=== PATIENT | female | born 1985 | race Caucasian/White ===

== ENCOUNTER → 2024-06-02 15:18 | Outpatient (CLI) | payer OTHER, SELFPAY ==
--- NOTE | ~2024-06-02 | XR_ITS ---
XR abdomen/kub 1V Ordering provider: Chey Bustamante History: . 10596. HX OF KIDNEY STONES. . Comparison: None. FINDINGS: BOWEL: Nonobstructive bowel gas pattern. Fecal material is loaded in the colon suggestive of constipa tion. ORGANOMEGALY: None. SIGNIFICANT PATHOLOGIC CALCIFICATIONS: None. OTHER: No free air is seen under the diaphragm. IMPRESSION: NO ACUTE ABDOMINAL FINDINGS. Constipation. Reviewed, dictated and finalized at location A.
--- OUTSIDE RECORDS SUMMARY | 2024-06-02 16:41 | XMS_ITS | Clinical Summary ---
Author Organization [facility] [address] [place] [address] Phone Care Team Providers Care Composite Layup Worker Name Role Phone Unavailable Primary Care Provider Unavailabl e Allergies Active Allergy Reactions Criticality Noted Date Comments Codeine Nausea and Vomiting Low 05/18/2012 Medications VITS W-CA,FE,FA,<1MG, ( VITAMIN ORAL) Take 1 Tab by mouth daily. Active Levothyroxine 100 mcg Oral Cap Take 1 Tab by mouth daily. Active Family History Medical History Relation Name Comments Cancer Father Colon Cancer Father Hypertension Maternal Grandfather Hypertension Maternal Grandmother Healthy Mother Hypertension Paternal Grandfather Hypertension Paternal Grandmother Healthy Son Relation Name Status Comments Father Maternal Grandfather Maternal Grandmother Mother Paternal Grandfather Paternal Grandmother Son Social History Tobacco Use Types Packs/Day Years Used Date Smoking Tobacco: Never Alcohol Use Standard Drinks/Week Comments No 0 (1 standard drink = 0.6 oz pur e alcohol) Comments Yes Sex and Gender Information Value Date Recorded Sex Assigned at Not on file Legal Sex Female 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 REPAIRER Gender Identity Not on file Sexual Orientation Not on file Occupation Industry Job Start Date Job End Date Not on file Not on file Not on file Not on file Plan of Treatment Health Maintenance Due Date Last Done Comments DTAP/TDAP/TD VACCINES (1 - Tdap) 2002 HEPATITIS B VACCINES (1 of 3 - 19+ 3-dose series) 2002 HPV/Cotest (21-29) 2004 CERVICAL CANCER SCREENING 2013 HPV/Cotest (30-65) 2013 PAP SMEAR 2013 BREAST CANCER SCREENING 2023 INFLUENZA VACCINE (#1) 2023 RSV VACCINE (60+ or ) (1 - 1-dose 75+ series) 2058 HPV VACCINES Aged Out No longer eligi ble based on patient's age to complete this topic
--- OUTSIDE RECORDS SUMMARY | 2024-06-02 16:41 | XMS_ITS | Clinical Summary ---
Author Organization [facility] Address [address] [place] [address] Phone Care Team Providers Care Ornamental Metal Erector Apprentice Name Role Phone Jose Elias Pastor MD Primary Care Provider [phone] Jose Elias Pastor MD Unavailable [phone] Allergies Active Allergy Reactions Criticality Noted Date Comments Codeine Nausea Low 05/12/2017 Codeine Diarrhea 12/28/2019 Medications levothyroxine (SYNTHROID) 100 MCG Tablet Take 112 mcg by mouth daily. 0 Active fluticasone (FLONASE) 50 MCG/ACT SuspensionIndicati ons:RSV (acute bronchiolitis due to respiratory syncytial virus) 1-2 Sprays by Nasal route daily. Use in each nostril as directed. 15.8 mL 2 Active Active Problems No known active problems Social History Tobacco Use Types Packs/Day Years Used Date Smoking Tobacco: Never Smokeless Tobacco: Never Comments No Sex and Gender Information Value Date Recorded Sex Assigned at Not on file Legal Sex Female 8:25 AM TOP LIFT COMPRESSOR Gender Identity Not on file Sexual Orientation Not on file Last Filed Vital Signs Vital Sign Reading Time Taken Comments Blood Pressure 106/60 12/17/2021 11:34 AM TOP LIFT COMPRESSOR Pulse 65 12/17/2021 11:34 AM TOP LIFT COMPRESSOR Temperature 36.4 C (97.6 F) 12/17/2021 11:34 AM TOP LIFT COMPRESSOR Respiratory Rate 20 12/17/2021 11:34 AM TOP LIFT COMPRESSOR Oxygen Saturation 98% 12/17/2021 11:34 AM TOP LIFT COMPRESSOR Inhaled Oxygen Concentration - - Weight 93 kg (205 lb) 02/01/2021 9:48 AM TOP LIFT COMPRESSOR Height 170.2 cm (5' 7 ) 12/28/2019 8:57 AM TOP LIFT COMPRESSOR Body Mass Index 32.11 12/28/2019 8:57 AM TOP LIFT COMPRESSOR Plan of Treatment Health Maintenance Due Date Last Done Comments Hepatitis C Virus (HCV) Screening 1983 TdaP Immunization 1983 Hepatitis B Immunization (1 of 3 - 19+ 3-dose series) 2002 Influenza Immunization (#1) 2023 SARS-COV-2 Immunization (1 - 2023- season) 2023 Respiratory Syncytial Virus (RSV) Immunization (Adult) (1 - 1-dose 75+ series) 2058 Meningococcal Immunization (ACWY) Aged Out No longer eligible based on patient's age to complete this topic Pneumococcal Immunization Combined Aged Out No longer eligible based on patient's age to complete this topic Rotavirus Immunization Aged Out No lo nger eligible based on patient's age to complete this topic Insurance Care Teams Ornamental Metal Erector Apprentice Relationship Specialty Start Date End Date Jose Elias Pastor MD [address] [place] [address] [address] [place] [address] PCP - General Family Medicine 11/18/20 Jose Elias Pastor MD [address] [place] [address] Family Medicine 12/28/19
--- OUTSIDE RECORDS SUMMARY | 2024-06-02 16:41 | XMS_ITS | Encounter Summary ---
Author Organization [facility] Address [address] [place] [address] Care Team Providers Care Cellar Packer Name Role Phone Cydney Ayala NP Primary Care Provider [phone] Encounter Details Date Type Department Care Team (Late st Contact Info) Description 01/15/2023 NXVISION Message Enc [facility] Family Medicine [facility] [address] [place] [address] [facility] Provider Pulmicort Social History Tobacco Use Types Packs/Day Years Used Date Smoking Tobacco: Never Passive Smoke Exposure: Past Smokeless Tobacco: Never Alcohol Use Standard Drinks/Week Comments Yes 0 (1 standard drink = 0.6 oz pur e alcohol) socially PHQ-2 Answer Date Recorded Patient Health Questionnaire-2 Score 0 09/08/2022 Comments No Sex and Gender Information Value Date Recorded Sex Assigned at Not on file Legal Sex Female 4:19 PM CDT Gender Identity Not on file Sexual Orientation Not on file documented as of this encounter Plan of Treatment Not on file documented as of this encounter Visit Diagnoses Not on filedocumented in this encounter Additional Health Concerns Assessment Noted Time PHQ-9 Depression Total Score: 15 023 10:20 AM CDT documented as of this encounter Care Teams Cellar Packer Relationship Specialty Start Date End Date Cydney Ayala NP [address] [place] [address] PCP - General NURSE PRACTITIONER 06/04/22 documented as of this encounter
--- OUTSIDE RECORDS SUMMARY | 2024-06-02 16:41 | XMS_ITS | Referral Summary ---
Author Organization [facility] Address [address] [place] [address] Phone Care Team Providers Care Photoengraving Printer Name Role Phone Cydney Ayala MD Primary Care Provider [phone] Encounters Date Type Department Care Team Description 03/22/2024 3:45 PM CLOTH WASHER BACK TENDER Office Visit [facility] Orthopaedic Surgery [address] [place] [address] Jumana Herrera, STEFFI Plantar fasciitis (Primary Dx); Left foot pain from Last 3 Months Allergies Active Allergy Reactions Criticality Noted Date Comments Bupropion Other (See comments) Low 07/09/2022 Intolerance to Wellbutrin, caused her to be very angry Codeine Diarrhea,Nausea only,Unknown Low 05/12/2017 Medications levothyroxine (SYNTHROID) 112 mcg tablet Take 1 tablet (112 mcg total) by mouth daily 4 Active phentermine 15 mg capsule TAKE 1 CAPSULE BY MOUTH DAILY 1 TO 2 HOURS AFTER BREAKFAST Active cyanocobalamin (Vitamin B-12) 1,000 mcg tablet Take 1 tablet (1,000 mcg total) by mouth daily Active cholecalciferol (VITAMIN D-3) 1,000 unit capsule Take by mouth Active meloxicam (MOBIC) 15 mg tablet Take 1 tablet (15 mg total) by mouth daily 14 tablet 12/08/19 Active Additional Information Patient not taking.Reported on 12/29/2023 Active Problems No known active problems Social History Tobacco Use Types Packs/Day Years Used Date Smoking Tobacco: Never Smokeless Tobacco: Never Tobacco Cessation:Counseling Given: Not Answered Comments Unknown Sex and Gender Information Value Date Recorded Sex Assigned at Not on file Legal Sex Female 7:00 PM CLOTH WASHER BACK TENDER Gender Identity Not on file Sexual Orientation Not on file Last Filed Vital Signs Vital Sign Reading Time Taken Comments Blood Pressure - - Pulse - - Temperature - - Respiratory Rate - - Oxygen Saturation - - Inhaled Oxygen Concentration - - Weight 95.3 kg (210 lb) 12/29/2023 8:05 AM CLOTH WASHER BACK TENDER Height 172.7 cm (5' 8 ) 12/29/2023 8:05 AM CLOTH WASHER BACK TENDER Body Mass Index 31.93 12/29/2023 8:05 AM CLOTH WASHER BACK TENDER Plan of Treatment Not on file Insurance [id number] CHOICE PLUS [facility] HMO/PPO Address: [facility] [address] [place] [id number] [facility] CHOICE PLUS [facility] HMO/PPO Address: [place] [address] Care Teams Photoengraving Printer Relationship Specialty Start Date End Date Cydney Ayala MD PCP - General Nurse Practitioner 12/08/23
--- OUTSIDE RECORDS SUMMARY | 2024-06-02 16:41 | XMS_ITS | Encounter Summary ---
Author Organization [facility] Address [address] [place] [address] Care Team Providers Care Craft Worker Name Role Phone Cydney Ayala NP Primary Care Provider [phone] Encounter Details Date Type Department Care Team (Late st Contact Info) Description 04/28/2023 Nuservt Message Enc [facility] Family Medicine - [place] [address] [place], [place] [id number] Cydney Ayala NP [address] [place], [place] [id number] Cough/congestion Social History Tobacco Use Types Packs/Day Years Used Date Smoking Tobacco: Never Passive Smoke Exposure: Past Smokeless Tobacco: Never Alcohol Use Standard Drinks/Week Comments Yes 0 (1 standard drink = 0.6 oz pur e alcohol) socially PHQ-2 Answer Date Recorded Patient Health Questionnaire-2 Score 0 02/16/2023 Comments No Sex and Gender Information Value [...] documented as of this encounter Care Teams Craft Worker Relationship Specialty Start Date End Date Cydney Ayala NP [address] [place], [place] [id number] PCP - General NURSE PRACTITIONER 06/04/22 documented as of this encounter
--- OUTSIDE RECORDS SUMMARY | 2024-06-02 16:41 | XMS_ITS | Clinical Summary ---
Author Organization [facility] Address [address] [place] [address] Phone Care Team Providers Care Abrasive Coating Machine Operator Name Role Phone Cydney Ayala MD Primary Care Provider [phone] Allergies Active Allergy Reactions Criticality Noted Date [...] mg total) by mouth daily 14 tablet 4 12/08/19 25 Active Additional Information Patient not taking.Reported on 12/29/2023 Active Problems No known active problems Encounters Date Type Department Care Team Description 03/22/2024 3:45 PM OXYGEN SYSTEM TESTER Office Visit [facility] Orthopaedic Surgery [address] [place] [address] Jumana Herrera, STEFFI Plantar fasciitis (Primary Dx); Left foot pain from Last 3 Months Social History Tobacco Use Types Packs/Day Years Used Date Smoking Tobacco: Never Smokeless Tobacco: Never Tobacco Cessation:Counseling Given: Not Answered Comments Unknown Sex and Gender Information Value Date Recorded Sex Assigned at Not on file Legal Sex Female 7:00 PM OXYGEN SYSTEM TESTER Gender Identity Not on file Sexual Orientation Not on file Obstetrics History Last Filed Vital Signs Vital Sign Reading Time Taken Comments Blood Pressure - - Pulse - - Temperature - - Respiratory Rate - - Oxygen Saturation - - Inhaled Oxygen Concentration - - Weight 95.3 kg (210 lb) 12/29/2023 8:05 AM OXYGEN SYSTEM TESTER Height 172.7 cm (5' 8 ) 12/29/2023 8:05 AM OXYGEN SYSTEM TESTER Body Mass Index 31.93 12/29/2023 8:05 AM OXYGEN SYSTEM TESTER Plan of Treatment Health Maintenance Due Date Last Done Comments Cervical Cancer Screening 1983 Depression Screening 1983 Hepatitis C Screening 1983 Varicella Vaccines (1 of 2 - 13+ 2-dose series) 1996 Hepatitis B Screening 2001 Regular Well Visit/Exam 18-64 2001 Breast Cancer Screening-Mammogram 08/30/2024 08/31/2023, 08/31/2023 Influenza Vaccine (Season Ended) 2024 DTaP/Tdap/Td Vaccine (2 - Td or Tdap) 02/05/2032 02/04/2022 HPV Vaccines Aged Out No longer eligi ble based on patient's age to complete this topic Pneumococcal vaccine <65 Aged Out No longer eligible based on patient's age to complete this topic Insurance [facility] PL[facility] Care Teams Abrasive Coating Machine Operator Relationship Specialty Start Date End Date Cydney Ayala MD PCP - General Nurse Practitioner 12/08/23
--- OUTSIDE RECORDS SUMMARY | 2024-06-02 16:41 | XMS_ITS | Clinical Summary ---
Author Organization [facility] Address [address] [place] [address] Care Team Providers Care Wood Boatbuilder Name Role Phone Cydney Parker NP Primary Care Provider +[phone] Allergies Active Allergy Reactions Criticality Noted Date Comments Codeine Diarrhea,Nausea Only,Unknown Low 05/12/2017 Bupropion Other (see comment) 07/09/2022 Intolerance to Wellbutrin, caused her to be very angry Medications vitamin B-12 (CYANOCOBALAMIN) (CYANOCOBALAMIN) 1000 mcg tablet Take 1 tablet (1,000 mcg total) by mouth daily. Active albuterol sulfate HFA 108 (90 Base) MCG/ACT inhalerIndicatio ns:Cough, unspecified type Inhale 2 puffs into the lungs every 6 (six) hours as needed for Wheezing. 18 g 3 Active Cholecalciferol (VITAMIN D3) 1000 units Cap Activ e Phentermine HCl 15 MG CapIndications:O besity (BMI 30-39.9) Take 1 tablet by mouth daily. Take 1-2 hours after breakfast 30 capsule 4 Active propranolol (INDERAL) 10 MG tabletIndication s:Anxiety Take 1 tablet (10 mg total) by mouth 2 (two) times daily as needed (for anxiety). 30 tablet 5 Active levothyroxine (SYNTHROID) 112 MCG tabletIndication s:Hypothyroidism , unspecified type Take 1 tablet (112 mcg total) by mouth every morning. 90 tablet 5 Active Active Problems Problem Noted Date Diagnosed Date Screening for colon cancer 09/08/2022 Overview (09/08/2022): Added automatically from request for surgery [id number] Family hx of colon cancer 09/08/2022 Overview (09/08/2022): Added automatically from request for surgery [id number] Anxiety and depression 06/09/2022 Obesity (BMI 30-39.9) 06/09/2022 Other fatigue 06/09/2022 Encounters Date Type Department Care Team Description 03/13/2024 Materialiset Message Enc [facility] Medical Group Family Medicine - [place] [address] [place] [address] Cydney Parker NP Glucose from Last 3 Months Immunizations Immunization Administration Dates Next Due Tdap (Generic) 02/04/2022 Family History Medical History Relation Comments Colon Cancer Father stage 4 Arthritis Mother Autoimmune COPD Mother Rheumatoid Arthritis Mother Relation Status Comments Father Mother Social History Tobacco Use Types Packs/Day Years Used Date Smoking Tobacco: Never Passive Smoke Exposure: Past Smokeless Tobacco: Never Tobacco Cessation:Counseling Given: No Alcohol Use Standard Drinks/Week Comments Yes 0 [...] Sign Reading Time Taken Comments Blood Pressure 118/76 07/08/2023 11:29 AM CDT Pulse 73 07/08/2023 11:29 AM CDT Temperature 36.9 C (98.5 F) 07/08/2023 11:29 AM CDT Respiratory Rate 16 07/08/2023 11:29 AM CDT Oxygen Saturation 100% 07/08/2023 11:29 AM CDT Inhaled Oxygen Concentration - - Weight 98 kg (216 lb) 07/08/2023 11:29 AM CDT Height 172.7 cm (5' 8 ) 02/16/2023 3:50 PM VICE PRESIDENT NETWORK DEVELOPMENT Body Mass Index 32.84 02/16/2023 3:50 PM VICE PRESIDENT NETWORK DEVELOPMENT Plan of Treatment Health Maintenance Due Date Last Done Comments Cervical Cancer Screening Pa p Smear (Age 30 to 64) Every 3 Years 1983 Hepatitis B Vaccines (1 of 3 - 19+ 3-dose series) 2002 Cervical Cancer Screening Pa p with HPV Testing (Age 30 to 64) Every 5 Years 2013 Cervical Cancer Screening with HPV 2013 COVID-19 Vaccine (2023-2 5 season) 2023 PHQ-2 (Physician [place]) 02/10/2024 02/16/2023 Annual Physical 02/17/2024 02/16/2023 Mammogram Screening 08/30/2025 08/31/2023 DTaP, Tdap and Td Vaccines ( 2 - Td or Tdap) 02/05/2032 02/04/2022 Hepatitis C Completed 06/16/2022 HPV Vaccines Aged Out No longer eligi ble based on patient's age to complete this topic Meningococcal B Vaccine Aged Out No l onger eligible based on patient's age to complete this topic Meningococcal Vaccine Aged Out No neisha juan carlos eligible based on patient's age to complete this topic Pneumococcal Vaccine: Pediat rics (0 to 5 Years) and At-Risk Patients (6 to 49 Years) Aged Out No longer eligi ble based on patient's age to complete this topic RSV Immunizations Under 20 Months Aged Out No longer eligible based on patient's age to complete this topic Procedures Procedure Name Priority Date/Time Associated Diagnosis Comments VITAMIN D, 25 OH TOTAL Routine 03/11/2024 7:22 AM VICE PRESIDENT NETWORK DEVELOPMENT Vitamin D deficiency TSH W/REFLEX Routine 03/11/2024 7:22 AM VICE PRESIDENT NETWORK DEVELOPMENT Screening for thyroid disorder LIPID PANEL Routine 03/11/2024 7:22 AM VICE PRESIDENT NETWORK DEVELOPMENT Screening for hyperlipidemia HEMOGLOBIN, GLYCOSYLATED Routine 03/11/2024 7:22 AM VICE PRESIDENT NETWORK DEVELOPMENT Screening for endocrine, metabolic and immunity disorder Obesity (BMI 30-39.9) COMPREHENSIVE METABOLIC PANEL Routine 03/11/2024 7:22 AM VICE PRESIDENT NETWORK DEVELOPMENT Screening for endocrine, metabolic and immunity disorder Obesity (BMI 30-39.9) CBC W/DIFF AUTOMATED Routine 03/11/2024 7:22 AM VICE PRESIDENT NETWORK DEVELOPMENT Screening for endocrine, metabolic and immunity disorder MG SCREENING W LESLY MONAE DIGI Routine 08/31/2023 2:14 PM CDT Screening mammogram for breast cancer HEPATITIS C ANTIBODY W/RFX TO HCV RNA Routine 06/16/2022 11:23 AM CDT Need for hepatitis C screening test from Last 3 Months or Most Recently Relevant to Health Maintenance Results * TSH W/REFLEX (03/11/2024 7:22 AM VICE PRESIDENT NETWORK DEVELOPMENT) TSH 3.23 mIU/L [facility] Comment: Reference Range > or = 20 Years 0.40-4.50 Ranges First trimester 0.26-2.66 Second trimester 0.55-2.73 Third trimester 0.43-2.91 03/11/2024 7:22 AM VICE PRESIDENT NETWORK DEVELOPMENT 03/11/2024 7:22 AM VICE PRESIDENT NETWORK DEVELOPMENT Narrative [facility] - JIM ORDERS - 03/12/2024 3:32 AM VICE PRESIDENT NETWORK DEVELOPMENT FASTING:YES FASTING: YES Resulting Agency Comment Performing Organization Information: Site ID: [place] Name: [facility] Address: [address] [place] [id number] Director: Andres Armas MD us Cydney Parker NP LABORATORY Final Res ult [facility] [address] [address] * VITAMIN D, 25 OH ([facility] ONLY) (03/11/2024 7:22 AM VICE PRESIDENT NETWORK DEVELOPMENT) VITAMIN D 25 HYDROXY TOTAL S/P/B 52 30 - 100 ng/mL [facility] Comment: Vitamin D Status 25-OH Vitamin D: Deficiency: <20 ng/mL Insufficiency: 20 - 29 ng/mL Optimal: > or = 30 ng/mL For 25-OH Vitamin D testing on patients on D2-supplementation and patients for whom quantitation of D2 and D3 fractions is required, the QuestAssureD(TM) 25-OH VIT D, (D2,D3), LC/MS/MS is recommended: order code 29839 (patients >2yrs). See Note 1 Note 1 For additional information, please refer to http://education.AzulStar.Sensipass/faq/JUO013 (This link is being provided for informational/ educational purposes only.) 03/11/2024 7:22 AM VICE PRESIDENT NETWORK DEVELOPMENT 03/11/2024 7:22 AM VICE PRESIDENT NETWORK DEVELOPMENT Narrative [facility] - JIM ORDERS - 03/12/2024 3:32 AM VICE PRESIDENT NETWORK DEVELOPMENT FASTING:YES FASTING: YES Resulting Agency Comment Performing Organization Information: Site ID: [place] Name: [facility] Address: [address] [place] [address] Director: Andres Armas MD us Cydney Parker SOURCING INTERN LABORATORY Final Res ult [facility] - [facility] [address] [place] [address], * HEMOGLOBIN, GLYCOSYLATED (03/11/2024 7:22 AM VICE PRESIDENT NETWORK DEVELOPMENT) HGB A1C 5.5 <5.7 % of total Hgb [facility] Comment: For the purpose of screening for the presence of diabetes: <5.7% Consistent with the absence of diabetes 5.7-6.4% Consistent with increased risk for diabetes (prediabetes) > or =6.5% Consistent with diabetes This assay result is consistent with a decreased risk of diabetes. Currently, no consensus exists regarding use of hemoglobin A1c for diagnosis of diabetes in children. According to [place] Diabetes Association (ADA) guidelines, hemoglobin A1c <7.0% represents optimal control in non- diabetic patients. Different metrics may apply to specific patient populations. Standards of Medical Care in Diabetes(ADA). 03/11/2024 7:22 AM VICE PRESIDENT NETWORK DEVELOPMENT 03/11/2024 7:22 AM VICE PRESIDENT NETWORK DEVELOPMENT Narrative [facility] - JIM ORDERS - 03/12/2024 3:32 AM VICE PRESIDENT NETWORK DEVELOPMENT FASTING:YES FASTING: YES Resulting Agency Comment Performing Organization Information: Site ID: [place] Name: [facility] Address: [address] [place] [address] Director: Andres Armas us Cydney Parker SOURCING INTERN LABORATORY Final Res ult [facility] - JIM ORDERS [facility], [place] [address] [place] [address], * (ABNORMAL) COMPREHENSIVE METABOLIC PANEL (03/11/2024 7:22 AM VICE PRESIDENT NETWORK DEVELOPMENT) GLUCOSE 111(H) 65 - 99 mg/dL [facility] Comment: Fasting reference interval For someone without known diabetes, a glucose value between 100 and 125 mg/dL is consistent with prediabetes and should be confirmed with a follow-up test. BUN 11 7 - 25 mg/dL [facility] CREATININE S/P/B 0.56 0.50 - 0.99 mg/dL [facility] GFR ESTIMATE 118 > OR = 60 mL/min/1. 73m2 [facility] BUN CREATININE RATIO SEE NOTE: (calc) [facility] Comment: Not Reported: BUN and Creatinine are within reference range. SODIUM S/P/B 138 135 - 146 mmol/L [facility] POTASSIUM S/P/B 4.2 3.5 - 5.3 mmol/L [facility] CHLORIDE S/P/B 104 98 - 110 mmol/L [facility] CO2 24 20 - 32 mmol/L [facility] CALCIUM S/P/B 9.6 8.6 - 10.2 mg/dL [facility] TOTAL PROTEIN S/P/B 6.4 6.1 - 8.1 g/dL [facility] ALBUMIN S/P/B 4.3 3.6 - 5.1 g/dL [facility] GLOBULIN 2.1 1.9 - 3.7 g/dL (calc) [facility] ALBUMIN/GLOBULI N RATIO 2.0 1.0 - 2.5 (calc) [facility] BILIRUBIN TOTAL S/P/B 0.6 0.2 - 1.2 mg/dL [facility] ALKALINE PHOSPHATASE S/P/B 78 31 - 125 U/L [facility] AST 13 10 - 30 U/L [facility] ALT 19 6 - 29 U/L [facility] 03/11/2024 7:22 AM VICE PRESIDENT NETWORK DEVELOPMENT 03/11/2024 7:22 AM VICE PRESIDENT NETWORK DEVELOPMENT Narrative [facility] FERNANDEZ ORDERS - 03/12/2024 3:32 AM VICE PRESIDENT NETWORK DEVELOPMENT FASTING:YES FASTING: YES Resulting Agency Comment Performing Organization Information: Site ID: YUN Name: [facility] Address: [address] [address] Director: Andres Armas MD us Cydney Parker SOURCING INTERN LABORATORY Final Res ult MIRNA RICKS [facility] JUSTEN [facility] [address] [address], * LIPID PANEL (03/11/2024 7:22 AM VICE PRESIDENT NETWORK DEVELOPMENT) CHOLESTEROL 191 <200 mg/dL [facility] HDL 80 > OR = 50 mg/dL [facility] TRIGLYCERIDES 76 <150 mg/dL [facility] LDL (CALCULATED) 94 mg/dL (calc) [facility] Comment: Reference range: <100 Desirable range <100 mg/dL for primary prevention; <70 mg/dL for patients with CHD or diabetic patients with > or = 2 CHD risk factors. LDL-C is now calculated using the Carlos-Ragsdale calculation, which is a validated novel method providing better accuracy than the Friedewald equation in the estimation of LDL-C. Carlos MENDES et al. ADILSON. 2013;310(19): 9987-1858 (http://education.AzulStar.Sensipass/faq/NEP687) CHOL/HDL RATIO 2.4 <5.0 (calc) [facility] NON HDL CHOLESTEROL 111 <130 mg/dL (calc) [facility] Comment: For patients with diabetes plus 1 major ASCVD risk factor, treating to a non-HDL-C goal of <100 mg/dL (LDL-C of <70 mg/dL) is considered a therapeutic option. 03/11/2024 7:22 AM VICE PRESIDENT NETWORK DEVELOPMENT 03/11/2024 7:22 AM VICE PRESIDENT NETWORK DEVELOPMENT Narrative MIRNA FERNANDEZ ORDERS - 03/12/2024 3:32 AM VICE PRESIDENT NETWORK DEVELOPMENT FASTING:YES FASTING: YES Resulting Agency Comment Performing Organization Information: Site ID: YUN Name: [facility] Address: [address] [address] Director: Andres Armas MD us Cydney Parker NP LABORATORY Final Res ult MIRNA RICKS [facility] [address] [address], [place] * CBC W/DIFF AUTOMATED (03/11/2024 7:22 AM VICE PRESIDENT NETWORK DEVELOPMENT) WBC 6.7 3.8 - 10.8 Thousand/u L [facility] RBC 4.30 3.80 - 5.10 Million/uL [facility] HGB 12.6 11.7 - 15.5 g/dL [facility] HCT 37.2 35.0 - 45.0 % [facility] MCV 86.5 80.0 - 100.0 fL [facility] MCH 29.3 27.0 - 33.0 pg [facility] MCHC 33.9 32.0 - 36.0 g/dL [facility] Comment: For adults, a slight decrease in the calculated MCHC value (in the range of 30 to 32 g/dL) is most likely not clinically significant; however, it should be interpreted with caution in correlation with other red cell parameters and the patient's clinical condition. RDW 12.5 11.0 - 15.0 % [facility] PLT 370 140 - 400 Thousand/u L [facility] MPV 10.5 7.5 - 12.5 fL [facility] ABS. NEUTROPHILS 4,214 1,500 - 7,800 cells/uL [facility] ABS. LYMPHOCYTES 1,856 850 - 3,900 cells/uL [facility] ABS. MONOCYTES 482 200 - 950 cells/uL [facility] ABS. EOSINOPHILS 101 15 - 500 cells/uL [facility] ABS. BASOPHILS 47 0 - 200 cells/uL [facility] SEG NEUTROPHILS 62.9 % [facility] LYMPHOC[facility]TES 27.7 % [facility] MONOCYTES 7.2 % [facility] EOSINOPHILS 1.5 % [facility] BASOPHILS 0.7 % [facility] 03/11/2024 7:22 AM VICE PRESIDENT NETWORK DEVELOPMENT 03/11/2024 7:22 AM VICE PRESIDENT NETWORK DEVELOPMENT Narrative [facility] - JIM ORDERS - 03/12/2024 3:32 AM VICE PRESIDENT NETWORK DEVELOPMENT FASTING:YES FASTING: YES Resulting Agency Comment Performing Organization Information: Site ID: YUN Name: Mirna Curry Address: [address] [address] Director: Andres Armas MD Cydney Parker SOURCING INTERN LABORATORY Final Res ult [facility] - JIM ORDERS MIRNA CAMPUZANO [facility] [address] [address], [place] * MG SCREENING W LESLY MONAE DIGI (08/31/2023 2:14 PM CDT) Anatomical Region Laterality Modality Breast Bilateral Mammography 08/31/2023 3:54 PM CDT Impressions 08/31/2023 4:00 PM CDT IMPRESSION: No mammographic evidence of malignancy. RECOMMENDATION: Routine ScreeningBilateral OVERALL IMAGING ASSESSMENT: ACR BI-RADS 2 - BENIGN FINDING(S). Ordered By: CYDNEY PARKER Interpreted By: Jhonatan Galvez, 08/31/2023 3:54 PM Narrative 08/31/2023 4:00 PM CDT EXAMINATION: MG SCREENING W LESLY MNOAE DIGI INDICATIONS: Screening TECHNIQUE: Digital full field CC and MLO screening mammography bilaterally to include 3-D Tomosynthesis technique. This study was read with the assistance of a computer-aided detection system. HISTORY: No reported breast complaint. No documented personal or first degree family history of breast cancer. No documented prior breast procedure. COMPARISON: None. Baseline examination. TISSUE DENSITY: The breast tissue is heterogeneously dense, which may obscure small masses. FINDINGS: Few scattered typically benign round calcifications. No suspicious microcalcification, mass, or focal asymmetry .No architectural distortion. No axillary adenopathy. Cydney Parker SOURCING INTERN MAMMO Final Res ult * HEPATITIS C ANTIBODY W/RFX TO HCV RNA ([facility] ONLY) (06/16/2022 11:23 AM CDT) HEPATITIS C AB NON-REACT VEENA NON-REACT VEENA [facility] SIGNAL TO CUTOFF 0.11 <1.00 [facility] Comment: HCV antibody was non-reactive. There is no laboratory evidence of HCV infection. In most cases, no further action is required. However, if recent HCV exposure is suspected, a test for HCV RNA (test code 43590) is suggested. For additional information please refer to http://education.10X10 Room/faq/ZUS55t3 (This link is being provided for informational/ educational purposes only.) 06/16/2022 11:2 3 AM CDT 06/16/2022 11:27 AM CDT Narrative [facility] - JIM ORDERS - 06/18/2022 5:28 PM CDT FASTING:NO FASTING: NO Resulting Agency Comment Performing Organization Information: Site ID: [place] Name: [facility] Address: [address] [place] [address] Director: Andres Armas MD us Cydney Parker NP LABORATORY Final Res ult [facility] - JIM ORDERS [facility] [address] [address] [place], [place] [address] from Last 3 Months or Most Recently Relevant to Health Maintenance Insurance R Care Teams Wood Boatbuilder Relationship Specialty Start Date End Date Cydney Parker NP [address] [facility] [address] [address] PCP - General NURSE PRACTITIONER 06/04/22
--- OUTSIDE RECORDS SUMMARY | 2024-06-02 16:41 | XMS_ITS | Encounter Summary ---
Author Organization [facility] Address [facility] [place] [address] Care Team Providers Care Firefighter Type One Name Role Phone Cydney Ayala NP Primary Care Provider [phone] [phone] Encounter Details Date Type Department Care Team (Late st Contact Info) Description 03/13/2024 [email or web address] Message Enc [facility] Medical Group Family Medicine - [place] [address] [facility] [address] [place], [place] [phone] Cydney Ayala NP [address] [place], [place] [address] Glucose Social History Tobacco Use Types Packs/Day Years [...] documented as of this encounter Care Teams Firefighter Type One Relationship Specialty Start Date End Date Cydney Ayala NP [address] [place], [place] [phone] PCP - General NURSE PRACTITIONER 06/04/22 documented as of this encounter
--- OUTSIDE RECORDS SUMMARY | 2024-06-02 16:41 | XMS_ITS | Encounter Summary ---
Author Organization [facility] Address [address] [place] [address] Phone Care Team Providers Care Railcar Foreman Name Role Phone Jose Elias Pastor MD Primary Care Provider +1- [phone] Jose Elias Pastor MD Unavailable [phone] Reason for Visit * Reason Comments Medication Refill Encounter Details Date Type Department Care Team (Late st Contact Info) Description 02/07/2022 Refill [facility] Medial Group - [facility] [place] [address] [place] [address] Mary De Jesus MD [address] [place] [address] Medication Refill Social History Tobacco Use Types Packs/Day Years Used Date Smoking Tobacco: Never Smokeless Tobacco: Never Comments No Sex and Gender Information Value Date Recorded Sex Assigned at Not on file Legal Sex Female 8:25 AM BRANDING SPECIALIST Gender Identity Not on file Sexual Orientation Not on file documented as of this encounter Miscellaneous Notes * Telephone Encounter - Meka Coyle RN - 02/07/2022 10:26 AM BRANDING SPECIALIST Patient no longer has a PCP in this office. DING SPECIALIST documented in this encounter Plan of Treatment Not on file documented as of this encounter Visit Diagnoses Diagnosis RSV (acute bronchiolitis due to respiratory syncytial virus) Acute bronchiolitis due to respiratory syncytial virus (RSV) documented in this encounter Care Teams Railcar Foreman Relationship Specialty Start Date End Date Jose Elias Pastor MD [address] [place] [address] [address] [place] [address] PCP - General Family Medicine 12/28/19 Jose Elias Pastor MD [address] [place] [address] [address] [place] [address] Family Medicine 12/28/19 documented as of this encounter
--- OUTSIDE RECORDS SUMMARY | 2024-06-02 16:41 | XMS_ITS | Encounter Summary ---
Author Organization [facility] Address [facility] [place] [address] Care Team Providers Care Inspector Hot Forgings Name Role Phone Cydney Ayala NP Primary Care Provider [phone] [phone] Encounter Details Date Type Department Care Team (Late st Contact Info) Description 12/02/2022 PacketFrontt Message Enc [facility] Medical Group Family Medicine - [place] [address] [facility] [address] [place], [place] [phone] Cydney Ayala NP [address] [place], [place] [address] Meds Social History Tobacco Use Types Packs/Day Years [...] documented as of this encounter Care Teams Inspector Hot Forgings Relationship Specialty Start Date End Date Cydney Ayala NP [address] [place], [place] [address] PCP - General NURSE PRACTITIONER 06/04/22 documented as of this encounter
--- OUTSIDE RECORDS SUMMARY | 2024-06-02 16:41 | XMS_ITS | Encounter Summary ---
Author Organization [facility] Address [facility] [place] [address] Care Team Providers Care Tapper Shank Name Role Phone Cydney Ayala NP Primary Care Provider [phone] [phone] Encounter Details Date Type Department Care Team (Late st Contact Info) Description 08/18/2023 GOintegrot Message Enc [facility] Medical Group Family Medicine - [place] [address] [facility] [address] [place], [place] [phone] Cydney Ayala NP [address] [place], [place] [address] Pap appointment Social History Tobacco Use Types Packs/Day Years [...] documented as of this encounter Care Teams Tapper Shank Relationship Specialty Start Date End Date Cydney Ayala NP [address] [place], [place] [phone] PCP - General NURSE PRACTITIONER 06/04/22 documented as of this encounter
--- OUTSIDE RECORDS SUMMARY | 2024-06-02 16:41 | XMS_ITS | Encounter Summary ---
Author Organization [facility] Address [facility] [place] [address] Care Team Providers Care Needle Board Repairer Name Role Phone Cydney Ayala NP Primary Care Provider [phone] [phone] Encounter Details Date Type Department Care Team (Late st Contact Info) Description 01/14/2023 Borrot Message Enc [facility] Medical Group Family Medicine - [place] [address] [facility] [address] [place], [place] [phone] Cydney Ayala NP [address] [place] [address] [place], [place] [address] Urine tests Social History Tobacco Use Types Packs/Day Years [...] documented as of this encounter Care Teams Needle Board Repairer Relationship Specialty Start Date End Date Cydney Ayala NP [address] [place] [address] [place], [place] [phone] PCP - General NURSE PRACTITIONER 06/04/22 documented as of this encounter
--- OUTSIDE RECORDS SUMMARY | 2024-06-02 16:41 | XMS_ITS | Encounter Summary ---
Author Organization [facility] Address [address] [place] [address] Care Team Providers Care High School Foreign Language Tutor Name Role Phone Cydney Ayala NP Primary Care Provider [phone] [phone] Encounter Details Date Type Department Care Team (Late st Contact Info) Description 07/08/2023 OpenStudyt Message Enc [facility] Family Medicine - [place] [address] [facility] [address] [place], [place] [phone] Cydney Ayala NP [address] [place], [place] [address] follow up on thyroid Social History Tobacco Use Types Packs/Day Years [...] documented as of this encounter Care Teams High School Foreign Language Tutor Relationship Specialty Start Date End Date Cydney Ayala NP [address] [place], [place] [phone] PCP - General NURSE PRACTITIONER 06/04/22 documented as of this encounter
== END ==
DX: Z87.442 Personal history of urinary calculi (principal); K59.00 Constipation, unspecified
CPT/HCPCS: 74018